=== PATIENT | female | born 1970 | race Two or more races ===

== ENCOUNTER 2025-07-09 11:42 | Emergency (ER) | payer BC, OTHER ==
[~2025-07-09] VITALS: Ht 162.6 cm; Wt 83.5 kg
--- NOTE | 2025-07-09 12:25 | ED.PDOC ---
History of Present Illness HPI Comments 54 year old female with PMHx DM presents to the ED with a chief complaint of dizziness onset 3 days. Patient states she began taking Mounjaro 4 days ago, the next day began experiencing dizziness, temporarily loss of vision for a few seconds, blurred vision. Patient was seen by PCP, recommended to come to ED. During assessment patient is anxious. Denies fever, chills, chest pain, shortness of breath, numbness/tingling, abdominal pain, nausea, vomiting, head injury. No other symptoms or modifying factors present at this time. Chief Complaint: Dizziness Time Seen by MD: 12:20 Reviewed Notes: Medications, Allergies Information Source: Patient Mode of Arrival: Ambulatory Severity: Moderate Timing: Days Duration: Since onset Prehospital treatment: None Past Medical History PAST MEDICAL HISTORY: DM Surgical History: Denies all surgeries DINING ROOM CASHIER History: No Pertinent DINING ROOM CASHIER History Family History Family History: Reviewed,noncontributory to illness, No family hx of Cancer, No family hx of DM, No family hx of Heart zachary, No family hx of HTN, No family hx ofKidney zachary, No family hx of Liver zachary, No family hx of Lung zachary, No family hx of Stroke Social History Smoker: Non-Smoker Alcohol: Denies ETOH Use Drugs: Denies Drug Use Lives In: Home Constitutional: denies: chills, diaphoresis, fatigue, fever, malaise, sweats, weakness, others EENTM: reports: blurred vision; denies: double vision, ear bleeding, ear discharge, ear drainage, ear pain, ear ringing, eye pain, eye redness, hearing loss, mouth pain, mouth swelling, nasal discharge, nose bleeding, nose congestion, nose pain, photophobia, tearing, throat pain, throat swelling, voice changes, others Respiratory: denies: cough, hemoptysis, orthopnea, SOB at rest, shortness of breath, SOB with excertion, stridor, wheezing, others Cardiovascular: denies: chest pain, dizzy spells, diaphoresis, Dyspnea on exertion, edema, irregular heart beat, left arm pain, lightheadedness, palpitations, PND, syncope, others Gastrointestinal: denies: abdomen distended, abdominal pain, blood streaked bowels, constipated, diarrhea, dysphagia, difficulty swallowing, hematemesis, melena, nausea, poor appetite, poor fluid intake, rectal bleeding, rectal pain, vomiting, others Genitourinary: denies: abnormal vagina bleeding, burning, dyspareunia, dysuria, flank pain, frequency, hematuria, incontinence, pain, , vagina discharge, urgency, others Neurological: reports: dizziness; denies: fainting, headache, left sided numbness, left sided weakness, numbness, paresthesia, pre-existing deficit, right sided numbness, right sided weakness, seizure, speech problems, tingling, tremors, weakness, others Musculoskeletal: denies: back pain, gout, joint pain, joint swelling, muscle pain, muscle stiffness, neck pain, others Integumetry: denies: bruises, change in color, change in hair/nails, dryness, laceration, lesions, lumps, rash, wounds, others Allergic/Immunocompromised: denies: Difficulty Healing, Frequent Infections, Hives, Itching, others Hematologic/Lymphatic: denies: anemia, blood clots, easy bleeding, easy b ruising, swollen glands, others Endocrine: denies: excessive hunger, excessive sweating, excessive thirst, excessive urination, flushing, intolerance to cold, intolerance to heat, unexplained weight gain, unexplained weight loss, others Psychiatric: denies: anxiety, bipolar disorder, depression, hopeless, panic disorder, schizophrenia, sleepless, suicidal, others All Other Systems: Reviewed and Negative Physical Exam General Appearance: Moderate Distress, Normal HEENT: Normal ENT Inspection, Pharynx Normal, TMs Normal Neck: Full Range of Motion, Non-Tender, Normal, Normal Inspection Respiratory: Chest Non-Tender, Lungs Clear, No Accessory Muscle Use, No Respiratory Distress, Normal Breath Sounds Cardiovascular: No Edema, No JVD, No Murmur, No Gallop, Normal Peripheral Pulses, Regular Rate/Rhythm Breast Exam: Deferred Gastrointestinal: No Organomegaly, Non Tender, No Pulsatile Mass, Normal Bowel Sounds, Soft Genitalia: Deferred Pelvic: Deferred Rectal: Deferred Extremities: No calf tenderness, Normal capillary refill, Normal inspection, Normal range of motion, Non-tender, No pedal edema Musculoskeletal : Apperance: Normal Neurologic: Alert, child care specialist II-XII nml as Tested, No Motor Deficits, Normal Affect, Normal Mood, No Sensory Deficits Cerebellar Function: Normal Reflexes: Normal Skin: Dry, Normal Color, Warm Peripheral Pulses: 3+ Radial (R), 3+ Radial (L) Lymphatic: No Adenopathy Was a procedure done? Was a procedure done?: No EKG EKG : Pulse Rate (adult): 90 Cardiac Rhythm: NSR Differential Dx Considerations may include: Anemia TIA X-Ray, Labs, Meds, VS Vital Signs Date Time Temp Pulse Resp B/P (MAP) Pulse Ox O2 Delivery O2 Flow Rate FiO2 07/09/25 13:23 96 18 142/98 (113) 99 07/09/25 12:25 90 07/09/25 11:57 90 07/09/25 11:46 97.4 100 16 143/101 99 97.4 Lab Test 07/09/25 12:08 07/09/25 12:01 Range/Units Urine Color Light-yellow Yellow Urine Clarity Clear Clear Urine pH 5.5 5.0-9.0 Urine Specific [place] 1.023 1.001-1.035 Urine Protein Negative Negative Urine Ketones Negative Negative Urine Blood Trace H Negative /uL Urine Nitrite Negative Negative Urine Bilirubin Negative Negative Urine Urobilinogen Normal Negative mg/dL Urine Leukocyte Esterase 1+ Negative /uL Urine RBC 1 0 - 4 /hpf Urine Microscopic WBC 12 H 0-5 /HPF Urine Squamous Epithelial Cells Few <5 /hpf Urine Bacteria Mod H None Seen /hpf Urine Mucus Few None Seen Urine Glucose 1+ H Normal mg/dL POC Glucose 134 H 70-106 mg/dl Patient alert. Complaining of dizziness. UA shows UTI. Vitals stable. Answering questions. Has been feeling like this for many weeks. Possible TIA. Possibly will need MRI. Explained to the patient. Continue monitoring. Time of 1ST Reevaluation: 12:50 Reevaluation 1ST: Unchanged Patient Education/Counseling: Diagnosis, Treatment, Prognosis Family Education/Counseling: No Family Present SEPSIS Sepsis Screen Date sepsis recognized/suspect: Jul 09, 2025 Time Sepsis recognized/suspect: 1151 Recent Procedure: No On Antibiotic Therapy: No Respiratory Rate >20: No Heart Rate >90: Yes Temp<36 C (96.8 F) or >38.3 C: No SBP <90 or MAP <65 mmHG: No New Acute Mental Status Change: No Is the patient on CPAP, BIPAP,: No Physician Orders Troponin-I Hs (07/09/25 12:01) Complete Blood Count (07/09/25 12:01) Basic Metabolic Panel (07/09/25 12:01) Electrocardigram (07/09/25 12:11) Head Without Contrast (07/09/25 12:20) Vital Signs Date Time Temp Pulse Resp B/P (MAP) Pulse Ox O2 Delivery O2 Flow Rate FiO2 07/09/25 13:23 96 18 142/98 (113) 99 07/09/25 12:25 90 07/09/25 11:57 90 07/09/25 11:46 97.4 100 16 143/101 99 97.4 Departure 1 Departure Time of Disposition: 13:28 Impression: Primary Impression: Autonomic disorder Disposition: ADMITTED INPATIENT Admit to: Med Surg Condition: Guarded Critical Care Note Critical Care Time?: Yes (90 min-critical care time only) Stability Stability form required: No Heart Score Heart Score: Heart Score Response (Comments) Value History N/A 0 EKG N/A 0 Age N/A 0 Risk Factors N/A 0 Troponin N/A 0 Total 0 I personally scribed for TORI OLIVER MD ([email or web address]) on 07/09/25 at 12:25. Electronically submitted by Polly العلي ([email or web address]). TORI OLIVER MD Jul 09, 2025 12:25
[2025-07-09 12:44] LABS: Urine Protein, UAD Negative (Negative)
[2025-07-09 13:34] LABS: Hematocrit 44.3 % (36.0-46.0); Hemoglobin 15.3 g/dL (12.2-16.2); Mean Corpuscular Hemoglobin 32.1 pg (28.0-32.0); Mean Corpuscular Volume 93.1 fL (80.0-100.0); Nucleated Red Blood Cells % 0.1 %
[2025-07-09 13:44] LABS: Chloride 101 mmol/L (98-107); Potassium 4.2 mmol/L (3.5-5.1); Sodium 142 mmol/L (136-145)
[2025-07-09 13:45] LABS: Anion Gap 10 (5-15); Carbon Dioxide 31 mmol/L (20-31)
[2025-07-09 13:50] LABS: BUN/Creatinine Ratio 22.0 (10.0-20.0); Blood Urea Nitrogen 18 mg/dL (9-23); Glucose 123 mg/dL (74-106)
[2025-07-09 13:52] LABS: Calcium 9.9 mg/dL (8.7-10.4)
--- NOTE | 2025-07-09 14:40 | DVH ---
CLINICAL HISTORY: speech TECHNIQUE: Helical scanning was performed of the head from the skull base to the vertex. Multiplanar reconstructions were performed. This exam was performed according to our departmental dose optimization program. Up-to-date CT equipment and radiation dose reduction techniques are utilized as appropriate. CTDI 54 DLP 966 COMPARISON: None FINDINGS: There is no evidence for acute intracranial hemorrhage, acute ischemic changes, mass, mass effect, or extra-axial fluid collection. There is no hydrocephalus or midline shift. There is no effacement of the cerebral sulci and basal subarachnoid cisterns. The hammonds-white matter differentiation is well maintained. The imaged paranasal sinuses demonstrate minimal scattered mucoperiosteal thickening and a small amount of fluid and secretions within the nasopharynx. IMPRESSION: NO ACUTE INTRACRANIAL ABNORMALITY SEEN.
[2025-07-09 16:27] VITALS: BP 138/98; PULSE 90; RESP 18; TEMP 98.3; O2SAT 99
--- NOTE | 2025-07-09 18:19 | DVHHPRES ---
History of Present Illness Resident Creating Document: JORGE NORTON RESIDENT Review of Systems Allergies: Coded Allergies: NO KNOWN ALLERGIES (Unverified , 07/09/25) Exam Vital Signs Vital Signs Date Time Temp Pulse Resp B/P (MAP) Pulse Ox O2 Delivery O2 Flow Rate FiO2 07/09/25 16:27 98.3 90 18 138/98 (111) 99 98.3 Labs/Xrays Labs Test 07/09/25 12:57 07/09/25 12:08 07/09/25 12:01 Range/Units White Blood Count 7.5 4.4-10.8 10^3/uL Red Blood Count 4.76 4.0-5.20 10^6/uL Hemoglobin 15.3 12.2-16.2 g/dL Hematocrit 44.3 36.0-46.0 % Mean Corpuscular Volume 93.1 80.0-100.0 fL Mean Corpuscular Hemoglobin 32.1 H 28.0-32.0 pg Mean Corpuscular Hemoglobin Concent 34.5 32.0-36.0 g/dL Red Cell Distribution Width 12.8 11.8-14.3 % Platelet Count 242 140-450 10^3/uL Mean Platelet Volume 8.0 6.9-10.8 fL Neutrophils (%) (Auto) 56.5 37.0-80.0 % Lymphocytes (%) (Auto) 30.4 10.0-50.0 % Monocytes (%) (Auto) 6.9 0.0-12.0 % Eosinophils (%) (Auto) 5.7 0.0-7.0 % Basophils (%) (Auto) 0.5 0.0-2.0 % Neutrophils # (Auto) 4.3 1.6-8.6 10 ^3/uL Lymphocytes # (Auto) 2.3 0.4-5.4 10 ^3/uL Monocytes # (Auto) 0.5 0-1.3 10 ^3/uL Eosinophils # (Auto) 0.4 0-0.8 10 ^3/uL Basophils # (Auto) 0 0-0.2 10 ^3/uL Nucleated Red Blood Cells 0.1 % Sodium Level 142 136-145 mmol/L Potassium Level 4.2 3.5-5.1 mmol/L Chloride Level 101 98-107 mmol/L Carbon Dioxide Level 31 20-31 mmol/L Anion Gap 10 5-15 Blood Urea Nitrogen 18 9-23 mg/dL Creatinine 0.82 0.550-1.02 mg/dL Glomerular Filtration Rate Calc 86 >90 mL/min BUN/Creatinine Ratio 22.0 H 10.0-20.0 Serum Glucose 123 H 74-106 mg/dL Calcium Level 9.9 8.7-10.4 mg/dL Troponin I High Sensitivity 20 </=34 ng/L Urine Color Light-yellow Yellow Urine Clarity Clear Clear Urine pH 5.5 5.0-9.0 Urine Specific [place] 1.023 1.001-1.035 Urine Protein Negative Negative Urine Ketones Negative Negative Urine Blood Trace H Negative /uL Urine Nitrite Negative Negative Urine Bilirubin Negative Negative Urine Urobilinogen Normal Negative mg/dL Urine Leukocyte Esterase 1+ Negative /uL Urine RBC 1 0 - 4 /hpf Urine Microscopic WBC 12 H 0-5 /HPF Urine Squamous Epithelial Cells Few <5 /hpf Urine Bacteria Mod H None Seen /hpf Urine Mucus Few None Seen Urine Glucose 1+ H Normal mg/dL POC Glucose 134 H 70-106 mg/dl SEPSIS Sepsis Screen Date sepsis recognized/suspect: Jul 09, 2025 Time Sepsis recognized/suspect: 1151 Recent Procedure: No On Antibiotic Therapy: No Respiratory Rate >20: No Heart Rate >90: Yes Temp<36 C (96.8 F) or >38.3 C: No SBP <90 or MAP <65 mmHG: No New Acute Mental Status Change: No Is the patient on CPAP, BIPAP,: No Physician Orders Electrocardigram (07/09/25 12:11) Head Without Contrast (07/09/25 12:20) Vital Signs Date Time Temp Pulse Resp B/P (MAP) Pulse Ox O2 Delivery O2 Flow Rate FiO2 07/09/25 16:27 98.3 90 18 138/98 (111) 99 98.3 07/09/25 13:23 96 18 142/98 (113) 99 07/09/25 12:25 90 07/09/25 11:57 90 07/09/25 11:46 97.4 100 16 143/101 99 97.4 Laboratory Tests Test 07/09/25 12:57 White Blood Count 7.5 10^3/uL (4.4-10.8) JORGE NORTON RESIDENT Jul 09, 2025 18:19
[2025-07-09] MEDS ORDERED: ONDANSETRON HCL 4 MG/2 ML VIAL IV PRN (18:30)
[2025-07-09] MEDS ORDERED: ACETAMINOPHEN 325 MG TAB PO PRN (18:30)
[2025-07-09] MEDS ORDERED: MORPHINE SULFATE INJ 2 MG/ml SYRG IV PRN (18:30)
--- NOTE | 2025-07-09 18:54 | DVH ---
CHEST RADIOGRAPH Indication: SOB Technique: Single frontal view of the chest was obtained Comparison: None FINDINGS: Lines and Tubes: None Lungs: No focal consolidation. Pleura: No effusion. No pneumothorax. Cardiomediastinal contours: Unremarkable Bones: No acute osseous abnormality. IMPRESSION: No acute cardiopulmonary disease.
[2025-07-09 18:58] LABS: Magnesium 2.1 mg/dL (1.6-2.6)
[2025-07-09 19:00] LABS: Cholesterol 162.0 mg/dL (< 200); HDL Cholesterol 51.0 mg/dL (40-59)
[2025-07-09 19:02] LABS: Triglycerides 181.0 mg/dL (< 150)
[2025-07-09 19:12] LABS: Lipase 35.0 U/L (12-53)
[2025-07-09 19:17] LABS: Alanine Aminotransferase 16.0 U/L (7-40); Alkaline Phosphatase 98.0 U/L (46-116)
[2025-07-09 19:18] LABS: Albumin 4.9 g/dL (3.2-4.8); Bilirubin, Direct 0.2 mg/dL (<0.3); Bilirubin, Total 0.8 mg/dL (0.2-1.0); Total Protein 8.2 g/dL (5.7-8.2)
--- NOTE | 2025-07-09 19:48 | DVH ---
ULTRASOUND CAROTID DUPLEX BILATERAL REASON FOR EXAM: CVA COMPARISON: None TECHNIQUE: Using real-time freeze-frame technique with a high-frequency small parts transducer, multiple longitudinal and transverse sections were obtained. Simultaneous color flow Doppler imaging was performed. FINDINGS: There is no significant calcified or noncalcified plaque. Waveforms are normal. Flow is laminar throughout. Peak systolic velocities as well as ICA/CCA ratios are normal. Flow through the vertebral and external carotid arteries is antegrade bilaterally. PEAK SYSTOLIC VELOCITIES (cm/sec): RIGHT: CCA 75 Proximal ICA 98 Mid ICA 67 Distal ICA 65 ECA 122 ICA/CCA ratio 1.3 LEFT: CCA 87 Proximal ICA 44 Mid ICA 65 Distal ICA 84 ECA 104 ICA/CCA ratio 1.0 IMPRESSION: No hemodynamically significant stenosis. Any narrowing is less than 50%. Measurement of carotid stenosis is based on velocity parameters that correlate the residual internal carotid diameter with that of the more distal vessel in accordance with the [place] Symptomatic Carotid Endarterectomy Trial (NASCET).
[2025-07-09 19:59] LABS: INR 1.0 (0.9-1.15); Partial Thromboplastin Time 27.3 SEC (24.5-34.5); Prothrombin Time 10.6 sec (9.3-11.8)
[2025-07-09] MEDS ORDERED: ASPirin-EC 81 mg tab PO ONE (20:00)
[2025-07-09] MEDS ORDERED: LEVO500T91 PO (20:47)
[2025-07-09 21:42] LABS: Amphetamine Screen, Urine Pos (NEGATIVE); Barbiturate Scree,Urine Neg (NEGATIVE); Benzodiazephine Screen, Urine Neg (NEGATIVE); Cannabinoid Screen, Urine Neg (NEGATIVE); Cocaine Screen, Urine Pos (NEGATIVE); Opiate Scree,Urine Neg (NEGATIVE); Phencyclidine Screen, Urine Neg (NEGATIVE)
[2025-07-09] MEDS ORDERED: ATORVASTATIN 20 MG TAB PO SCH (22:00)
--- NOTE | 2025-07-09 22:04 | DVHHPRES ---
History of Present Illness Resident Creating Document: SG CRUMP RESIDENT Review of Systems Allergies: Coded Allergies: NO KNOWN ALLERGIES (Unverified , 07/09/25) Medications Current Medications Medications Dose Ordered Sig/Jona Route Start Time Stop Time Status Last Admin Dose Admin Acetaminophen 325 mg Q4HP PRN PO 07/09/25 18:30 Ondansetron HCl 4 mg Q4HP PRN IV 07/09/25 18:30 Morphine Sulfate 2 mg Q4HPRN PRN IV 07/09/25 18:30 Enoxaparin Sodium 40 mg DAILY SC 07/10/25 10:00 Aspirin 81 mg DAILY PO 07/10/25 10:00 Atorvastatin Calcium 40 mg HS PO 07/09/25 22:00 Ceftriaxone Sodium 50 ml @ 100 mls/hr DAILY@09 IV 07/10/25 09:00 Exam Vital Signs Vital Signs Date Time Temp Pulse Resp B/P (MAP) Pulse Ox O2 Delivery O2 Flow Rate FiO2 07/09/25 18:31 98.2 88 18 136/94 (108) 99 98.2 Labs/Xrays Labs Test 07/09/25 20:52 07/09/25 20:48 07/09/25 19:27 07/09/25 12:57 Range/Units Urine Opiates Screen Neg NEGATIVE Urine Fentanyl Screen Neg NEGATIVE Urine Barbiturates Screen Neg NEGATIVE Urine Phencyclidine Screen Neg NEGATIVE Urine Amphetamines Screen Pos NEGATIVE Urine Benzodiazepines Screen Neg NEGATIVE Urine Cocaine Screen Pos NEGATIVE Urine Cannabinoids Screen Neg NEGATIVE Prothrombin Time 10.6 9.3-11.8 sec Prothrombin Time INR 1.00 0.9-1.15 Activated Partial Thromboplast Time 27.3 24.5-34.5 SEC Lactic Acid Level 1.6 0.4-2.0 mmol/L Ammonia 19 11-32 umol/L White Blood Count 7.5 4.4-10.8 10^3/uL Red Blood Count 4.76 4.0-5.20 10^6/uL Hemoglobin 15.3 12.2-16.2 g/dL Hematocrit 44.3 36.0-46.0 % Mean Corpuscular Volume 93.1 80.0-100.0 fL Mean Corpuscular Hemoglobin 32.1 H 28.0-32.0 pg Mean Corpuscular Hemoglobin Concent 34.5 32.0-36.0 g/dL Red Cell Distribution Width 12.8 11.8-14.3 % Platelet Count 242 140-450 10^3/uL Mean Platelet Volume 8.0 6.9-10.8 fL Neutrophils (%) (Auto) 56.5 37.0-80.0 % Lymphocytes (%) (Auto) 30.4 10.0-50.0 % Monocytes (%) (Auto) 6.9 0.0-12.0 % Eosinophils (%) (Auto) 5.7 0.0-7.0 % Basophils (%) (Auto) 0.5 0.0-2.0 % Neutrophils # (Auto) 4.3 1.6-8.6 10 ^3/uL Lymphocytes # (Auto) 2.3 0.4-5.4 10 ^3/uL Monocytes # (Auto) 0.5 0-1.3 10 ^3/uL Eosinophils # (Auto) 0.4 0-0.8 10 ^3/uL Basophils # (Auto) 0 0-0.2 10 ^3/uL Nucleated Red Blood Cells 0.1 % Sodium Level 142 136-145 mmol/L Potassium Level 4.2 3.5-5.1 mmol/L Chloride Level 101 98-107 mmol/L Carbon Dioxide Level 31 20-31 mmol/L Anion Gap 10 5-15 Blood Urea Nitrogen 18 9-23 mg/dL Creatinine 0.82 0.550-1.02 mg/dL Glomerular Filtration Rate Calc 86 >90 mL/min BUN/Creatinine Ratio 22.0 H 10.0-20.0 Serum Glucose 123 H 74-106 mg/dL Hemoglobin A1c 7.4 H <5.7 % A1C Calcium Level 9.9 8.7-10.4 mg/dL Phosphorus Level 4.5 2.4-5.1 mg/dL Magnesium Level 2.1 1.6-2.6 mg/dL Total Bilirubin 0.8 0.2-1.0 mg/dL Direct Bilirubin 0.2 <0.3 mg/dL Aspartate Amino Transferase (AST) 18 13-40 U/L Alanine Aminotransferase (ALT) 16 7-40 U/L Alkaline Phosphatase 98 46-116 U/L Troponin I High Sensitivity 20 </=34 ng/L Total Protein 8.2 5.7-8.2 g/dL Albumin 4.9 H 3.2-4.8 g/dL Triglycerides Level 181 H < 150 mg/dL Cholesterol Level 162 < 200 mg/dL LDL Cholesterol 87 < 100 mg/dL HDL Cholesterol 51 40-59 mg/dL Lipase 35 12-53 U/L Vitamin D 25-Hydroxy 66.6 30.0-100 ng/mL Thyroid Stimulating Hormone (TSH) 2.39 0.55-4.78 uIU/mL Test 07/09/25 12:55 07/09/25 12:08 07/09/25 12:01 Range/Units Vitamin B12 Level 1721 H 211-911 pg/mL Urine Color Light-yellow Yellow Urine Clarity Clear Clear Urine pH 5.5 5.0-9.0 Urine Specific [place] 1.023 1.001-1.035 Urine Protein Negative Negative Urine Ketones Negative Negative Urine Blood Trace H Negative /uL Urine Nitrite Negative Negative Urine Bilirubin Negative Negative Urine Urobilinogen Normal Negative mg/dL Urine Leukocyte Esterase 1+ Negative /uL Urine RBC 1 0 - 4 /hpf Urine Microscopic WBC 12 H 0-5 /HPF Urine Squamous Epithelial Cells Few <5 /hpf Urine Bacteria Mod H None Seen /hpf Urine Mucus Few None Seen Urine Glucose 1+ H Normal mg/dL POC Glucose 134 H 70-106 mg/dl SEPSIS Sepsis Screen Date sepsis recognized/suspect: Jul 09, 2025 Time Sepsis recognized/suspect: 1151 Recent Procedure: No On Antibiotic Therapy: No Respiratory Rate >20: No Heart Rate >90: Yes Temp<36 C (96.8 F) or >38.3 C: No SBP <90 or MAP <65 mmHG: No New Acute Mental Status Change: No Is the patient on CPAP, BIPAP,: No Physician Orders Code Status (07/09/25 18:19) Acetaminophen Tablet (Tylenol Tablet) (07/09/25 18:30) Ondansetron Hcl (Zofran) (07/09/25 18:30) Complete Blood Count (07/10/25 04:00) Comprehensive Metabolic Panel (07/10/25 04:00) Cardiac Diet-2gna,Lofat,Lochol (07/09/25 Dinner) Echo 2d Mode Cardiac Dop (07/09/25 18:19) Carotid Duplx W Color Dop (07/09/25 18:19) Morphine Sulfate Injection (07/09/25 18:30) Enoxaparin Sodium (Lovenox) (07/10/25 10:00) Oxygen By Nasal Cannula (07/09/25 18:19) Stat Ekg For Chest Pain (07/09/25 18:19) Notify Md Of Changes From Base (07/09/25 18:19) System Planning Engineer For 24 Hours (07/09/25 18:19) Emergency Dysrhythmia Protocol (07/09/25 18:19) Rhythm Strips Once Every Shift (07/09/25 18:19) Aspirin Enteric Coated Tablet (Ecotrin E (07/10/25 10:00) Atorvastatin (Lipitor) (07/09/25 22:00) Electrocardigram (07/09/25 18:19) Chest Xray 1 View (07/09/25 18:19) Ceftriaxone 1gm/50ml (Rocephin) (07/10/25 09:00) Schedule For Dc Clinic F/U (07/09/25 20:47) Covid19 Antigen Joycelyn (07/09/25 ) Rapid Influenza A&B (07/09/25 20:48) Urine Bacterial Culture (07/09/25 20:48) Vital Signs Date Time Temp Pulse Resp B/P (MAP) Pulse Ox O2 Delivery O2 Flow Rate FiO2 07/09/25 18:31 98.2 88 18 136/94 (108) 99 98.2 07/09/25 16:27 98.3 90 18 138/98 (111) 99 98.3 Laboratory Tests Test 07/09/25 12:57 07/09/25 19:27 White Blood Count 7.5 10^3/uL (4.4-10.8) Lactic Acid Level 1.6 mmol/L (0.4-2.0) SG CRUMP RESIDENT Jul 09, 2025 22:04
[2025-07-09 22:29] LABS: COVID19 ANTIGEN SOFIA FIA NEGATIVE (NEGATIVE)
[2025-07-10] MEDS ORDERED: ENOXAPARIN SOD 40 MG/0.4 ML SYRINGE SC SCH (10:00)
[2025-07-10] MEDS ORDERED: ASPirin-EC 81 mg tab PO SCH (10:00)
--- NOTE | 2025-07-10 10:39 | ECG ---
[facility] Test Date: 2025-07-09 Test Time: 11:57:39 Pat Name: NIURKA GALEANO Department: ED Room: Gender: F Trap Setter: BRI : 1970 Requested By: TORI OLIVER Order Number: [id number] Reading MD: Christian Lyon Measurements Intervals [place] Rate: 90 P: 32 RI: 112 QRS: 51 QRSD: 94 T: 50 QT: 360 QTc: 441 Interpretive Statements Sinus rhythm Borderline short RI interval Electronically Signed On 07-10-2025 17:47:41 PST by Christian Lyon Please click the below link to view image of tracing.
== END 2025-07-10 03:57 | disposition left against medical advice (07) ==
LOC: ER 11:42 → UNDOADMIN 18:19 → OVERFLOW 18:19 → ER 07-10 03:57
DX: G90.9 Disorder of the autonomic nervous system, unspecified (principal); R51.9 Headache, unspecified; R06.02 Shortness of breath; Z20.822 Contact with and (suspected) exposure to COVID-19; Z79.899 Other long term (current) drug therapy
CPT/HCPCS: 36415; 70450; 71045; 80048; 80061; 80076; 80307; 81001; 82140; 82306; 82607; 82947; 82962; 83036; 83605; 83690; 83735; 84100; 84443; 84484; 85025; 85610; 85730; 87086; 87426; 87804; 93005; 93886; 99291; 99292